=== PATIENT | male | born 1995 | race Caucasian/White ===

== ENCOUNTER 2019-07-23 18:15 | Emergency (ER) | payer SELFPAY ==
[~2019-07-23] VITALS: Ht 167.6 cm; Wt 90.7 kg
[~2019-07-23 18:15] MED LIST: ACCUNEB 0.0.63 MG/3 INH; PREDNICOT20 MG PO; PROAIR HFA0.09 MG/AC IH; ZITHROMAX Z PA250 MG PO
[2019-07-23] MEDS ORDERED: AMOXICILLIN500 M2 PO (19:43)
[2019-07-23] MEDS ORDERED: IBUPROFEN600 MG PO (19:43)
== END 2019-07-23 20:02 | disposition home or self-care (01) ==
LOC: ED 18:15
DX: K02.9 Dental caries, unspecified (principal)

== ENCOUNTER → 2019-12-23 | Outpatient (CLI) | payer OTHER ==
[~2019-12-23] MED LIST changes: +AMOXICILLIN500 M2 PO; +IBUPROFEN600 MG PO
[2019-12-23 14:30] LABS: HEMATOCRIT 46.3 % (42.0-52.0); HEMOGLOBIN 15.7 g/dl (14.0-18.0); MEAN CORPUSCULAR HGB 30.2 pg (27.0-31.0); MEAN CORPUSCULAR HGB CONC 33.9 g/dl (33.0-37.0); MEAN PLATELET VOLUME 9.5 fl (9.6-12.3); RED BLOOD COUNT 5.2 10*6/uL (4.50-5.90); RED CELL DISTRI WIDTH 12.6 % (0-14.5); WHITE BLOOD COUNT 7.2 10*3/uL (4.8-10.8)
[2019-12-23 14:59] LABS: ALBUMIN 3.8 gm/dl (3.1-4.5); ALKALINE PHOSPHATASE 89 U/L (45-117); BUN 12 mg/dl (7-24); CHLORIDE 112 mmol/L (98-107); CHOLESTEROL 184 mg/dL (<200); CREATININE 0.88 mg/dL (0.70-1.30); HDL CHOLESTEROL 35 mg/dl (40-60); LDL CHOLESTEROL 75 mg/dL (9-159); SGOT/AST 41 IU/L (3-35); SGPT/ALT 78 U/L (12-78); SODIUM 143 mmol/L (136-145); TOTAL PROTEIN 7.1 gm/dL (6.4-8.2); TRIGLYCERIDES 368 mg/dl (<150); VLDL CHOLESTEROL 74 mg/dL (6-40)
== END | disposition home or self-care (01) ==
LOC: LAB 13:16
PROVIDERS: Nurse Practitioner Family
DX: I10 Essential (primary) hypertension (principal); E55.9 Vitamin D deficiency, unspecified; E78.00 Pure hypercholesterolemia, unspecified

== ENCOUNTER → 2020-02-06 | Outpatient (CLI) | payer OTHER | END | disposition home or self-care (01) | LOC: US 12:30 | DX: N43.3 Hydrocele, unspecified (principal) ==

== ENCOUNTER → 2020-09-14 | Outpatient (CLI) | payer OTHER ==
[2020-09-14 16:40] LABS: ALBUMIN 4.2 gm/dl (3.1-4.5); ALKALINE PHOSPHATASE 127 U/L (45-117); BUN 9 mg/dl (7-24); CHLORIDE 112 mmol/L (98-107); CREATININE 0.94 mg/dL (0.70-1.30); SGOT/AST 60 IU/L (3-35); SGPT/ALT 137 U/L (12-78); SODIUM 142 mmol/L (136-145); TOTAL PROTEIN 8.4 gm/dL (6.4-8.2)
== END | disposition home or self-care (01) ==
LOC: LAB 14:59
PROVIDERS: ATTEND Family Medicine
DX: K21.9 Gastro-esophageal reflux disease without esophagitis (principal); R94.5 Abnormal results of liver function studies

== ENCOUNTER → 2020-10-12 | Outpatient (CLI) | payer OTHER | END | disposition home or self-care (01) | LOC: COVID19 13:28 | PROVIDERS: ATTEND Family Medicine | DX: Z20.828 Contact with and (suspected) exposure to other viral communicable diseases (principal) ==

== ENCOUNTER 2021-03-28 20:58 | Emergency (ER) | payer OTHER ==
[~2021-03-28] VITALS: Ht 167.6 cm; Wt 99.8 kg
[2021-03-28] MEDS ORDERED: PREDNISONE20 M1 PO (23:23)
[2021-03-28] MEDS ORDERED: Ipratropium Brom3 ML INH (23:23)
== END 2021-03-28 23:42 | disposition home or self-care (01) ==
LOC: ED 20:58
DX: J45.901 Unspecified asthma with (acute) exacerbation (principal); R06.02 Shortness of breath; F17.200 Nicotine dependence, unspecified, uncomplicated

== ENCOUNTER → 2021-05-02 | Outpatient (CLI) | payer OTHER ==
[~2021-05-02] MED LIST changes: +Ipratropium Brom3 ML INH; +PREDNISONE20 M1 PO
[2021-05-02 13:04] LABS: HEMATOCRIT 44.2 % (42.0-52.0); MEAN CELL VOLUME 88.9 fl (80.0-94.0); MEAN CORPUSCULAR HGB 31.6 pg (27.0-31.0); MEAN CORPUSCULAR HGB CONC 35.5 g/dl (33.0-37.0); MEAN PLATELET VOLUME 9.5 fl (9.6-12.3); RED BLOOD COUNT 4.97 10*6/uL (4.50-5.90); RED CELL DISTRI WIDTH 12.6 % (0-14.5)
[2021-05-02 13:22] LABS: ALKALINE PHOSPHATASE 129 U/L (45-117); BUN 11 mg/dl (7-24); CHLORIDE 109 mmol/L (98-107); CREATININE 0.92 mg/dL (0.70-1.30); GAMMA GLUTAMYL TRANSPEPTIDASE 289 U/L (15-85); POTASSIUM 4.2 mmol/L (3.5-5.1); SGOT/AST 63 IU/L (3-35); SGPT/ALT 127 U/L (12-78); SODIUM 139 mmol/L (136-145); TOTAL PROTEIN 7.9 gm/dL (6.4-8.2)
[2021-05-03 05:08] LABS: HEP B CORE AB, IGM Negative (Negative); HEPATITIS B SURFACE AG Negative (Negative); HEPATITIS C VIRUS ANTIBODY <0.1 s/co (0.0-0.9)
== END | disposition home or self-care (01) ==
LOC: LAB 12:46
PROVIDERS: ATTEND Family Medicine
DX: K75.9 Inflammatory liver disease, unspecified (principal); F10.99 Alcohol use, unspecified with unspecified alcohol-induced disorder

== ENCOUNTER → 2021-05-17 | Outpatient (CLI) | payer OTHER | END | disposition home or self-care (01) | LOC: US 08:30 | PROVIDERS: ATTEND Family Medicine | DX: K76.0 Fatty (change of) liver, not elsewhere classified (principal) ==

== ENCOUNTER → 2021-11-08 | Outpatient (CLI) | payer OTHER | END | disposition home or self-care (01) | LOC: CT 10-28 15:00 | PROVIDERS: ATTEND Family Medicine | DX: L04.0 Acute lymphadenitis of face, head and neck (principal) ==

== ENCOUNTER → 2021-12-06 | Outpatient (CLI) | payer OTHER | END | disposition home or self-care (01) | LOC: CT 14:00 | PROVIDERS: ATTEND Family Medicine | DX: R07.9 Chest pain, unspecified (principal); R06.02 Shortness of breath; R06.00 Dyspnea, unspecified; Z86.16 Personal history of COVID-19; I88.9 Nonspecific lymphadenitis, unspecified ==

== ENCOUNTER 2022-06-05 13:25 | Inpatient (IN) | payer OTHER ==
[~2022-06-05] VITALS: Ht 170.1 cm; Wt 105.8 kg
[~2022-06-05 13:25] MED LIST changes: +CIPRO500 MG PO
[2022-06-05 13:30] VITALS: BP 147/102
[2022-06-05] MEDS ORDERED: Carafate1 GM PO (13:48)
[2022-06-05] MEDS ORDERED: OMEPRAZOLE40 MG PO (13:48)
[2022-06-05 14:28] LABS: BASO % 0.5 % (0.0-1.0); EOS # 0.1 10*3/uL (0.0-0.4); EOS % 1.7 % (1.0-4.0); HEMATOCRIT 48.7 % (42.0-52.0); LYMPH % 30.9 % (27.0-41.0); MEAN CELL VOLUME 88.5 fl (80.0-94.0); MEAN CORPUSCULAR HGB 31.3 pg (27.0-31.0); MEAN CORPUSCULAR HGB CONC 35.3 g/dl (33.0-37.0); MEAN PLATELET VOLUME 9.5 fl (9.6-12.3); MONO # 0.3 10*3/uL (0.1-1.0); NEUT # 3.9 10*3/uL (2.3-7.9); NEUT % 61.6 % (47.0-73.0); PLATELET COUNT AUTOMATED 265 10*3/uL (130-400); RED CELL DISTRI WIDTH 12.1 % (0-14.5); WHITE BLOOD COUNT 6.3 10*3/uL (4.8-10.8)
[2022-06-05 14:39] LABS: ACT PARTIAL THROMBO TIME 24.4 SECONDS (20.0-32.1); INTERNATIONAL NORM RATIO 0.9 (2.0-3.5)
[2022-06-05 14:42] LABS: ALKALINE PHOSPHATASE 100 U/L (45-117); BUN 11 mg/dl (7-24); CHLORIDE 108 mmol/L (98-107); CREATININE 1.04 mg/dL (0.70-1.30); ETHYL ALCOHOL < 3.0 mg/dl (<3); POTASSIUM 4.3 mmol/L (3.5-5.1); SGOT/AST 131 IU/L (3-35); SGPT/ALT 190 U/L (12-78); SODIUM 140 mmol/L (136-145); TOTAL PROTEIN 7.8 gm/dL (6.4-8.2)
[2022-06-05 14:47] VITALS: BP 134/86
[2022-06-05 16:00] VITALS: BP 145/85
[2022-06-05 16:09] LABS: BILIRUBIN Negative (Negative); BLOOD Negative (Negative); CLARITY Clear (Clear); COLOR Yellow (Yellow); GLUCOSE 3+ (Negative); KETONE Negative (Negative); LEUKO ESTERASE Negative (Negative); NITRITE Negative (Negative); SPECIFIC GRAVITY 1.025 (1.001-1.030)
[2022-06-05 16:19] LABS: URINE AMPHETAMINES < 1000 (1000ng/ml); URINE BARBITURATES < 200 (200ng/ml); URINE BENZODIAZEPINES < 200 (200ng/ml); URINE CANNABINOIDS (THC) > 50 (50ng/ml); URINE COCAINE < 300 (300ng/ml); URINE METHADONE < 300 (300ng/ml); URINE OPIATES < 300 (300ng/ml)
[2022-06-05 16:23] LABS: BACTERIA TRACE; MUCOUS 2+; WBC 0-2 wbc/hpf (0-5)
[2022-06-05 16:27] LABS: URINE PHENCYCLIDINE < 25 (25ng/ml)
[2022-06-05 20:00] VITALS: BP 148/89
[2022-06-06] VITALS: BP 140/78
[2022-06-06] MEDS ORDERED: VENT7GM INH (01:28)
[2022-06-06] MEDS ORDERED: VENTOLIN 02.5 MG/3 M INH (01:29)
[2022-06-06 06:27] LABS: BASO % 0.6 % (0.0-1.0); EOS # 0.2 10*3/uL (0.0-0.4); EOS % 3.7 % (1.0-4.0); HEMATOCRIT 44.2 % (42.0-52.0); LYMPH # 2.3 10*3/uL (1.3-4.4); LYMPH % 44.7 % (27.0-41.0); MEAN CELL VOLUME 89.1 fl (80.0-94.0); MEAN CORPUSCULAR HGB 31.9 pg (27.0-31.0); MEAN CORPUSCULAR HGB CONC 35.7 g/dl (33.0-37.0); MEAN PLATELET VOLUME 9.9 fl (9.6-12.3); MONO # 0.3 10*3/uL (0.1-1.0); MONO % 6.3 % (3.0-9.0); NEUT # 2.2 10*3/uL (2.3-7.9); NEUT % 43.9 % (47.0-73.0); PLATELET COUNT AUTOMATED 206 10*3/uL (130-400); RED BLOOD COUNT 4.96 10*6/uL (4.50-5.90); RED CELL DISTRI WIDTH 12.1 % (0-14.5); WHITE BLOOD COUNT 5.1 10*3/uL (4.8-10.8)
[2022-06-06 06:29] LABS: BUN 11 mg/dl (7-24); CHLORIDE 108 mmol/L (98-107); POTASSIUM 3.9 mmol/L (3.5-5.1); SODIUM 140 mmol/L (136-145)
[2022-06-06 06:38] LABS: ALKALINE PHOSPHATASE 88 U/L (45-117); CHOLESTEROL 213 mg/dL (<200); SGOT/AST 109 IU/L (3-35); SGPT/ALT 160 U/L (12-78); TOTAL PROTEIN 6.4 gm/dL (6.4-8.2); TRIGLYCERIDES 486 mg/dl (<150)
[2022-06-06 08:00] VITALS: BP 119/74
[2022-06-06 09:22] LABS: VITAMIN D, 25-HYDROXY 20.1 ng/mL (30-100)
[2022-06-06 12:00] VITALS: BP 116/72
[2022-06-06 16:00] VITALS: BP 124/74
[2022-06-06 20:00] VITALS: BP 106/88
[2022-06-07] VITALS: BP 108/54
[2022-06-07 06:15] LABS: BUN 10 mg/dl (7-24); CHLORIDE 107 mmol/L (98-107); CREATININE 0.83 mg/dL (0.70-1.30); POTASSIUM 3.9 mmol/L (3.5-5.1); SGOT/AST 75 IU/L (3-35); SGPT/ALT 149 U/L (12-78); SODIUM 140 mmol/L (136-145); TOTAL PROTEIN 6.7 gm/dL (6.4-8.2)
[2022-06-07 06:17] LABS: ALKALINE PHOSPHATASE 78 U/L (45-117)
[2022-06-07 08:00] VITALS: BP 118/74
[2022-06-07 12:00] VITALS: BP 124/82
[2022-06-07 16:00] VITALS: BP 140/83
[2022-06-07 20:00] VITALS: BP 121/41; BP 121/61
[2022-06-08] VITALS: BP 125/66
[2022-06-08 06:33] LABS: ALKALINE PHOSPHATASE 110 U/L (45-117); BUN 13 mg/dl (7-24); CHLORIDE 108 mmol/L (98-107); CREATININE 0.91 mg/dL (0.70-1.30); SGOT/AST 108 IU/L (3-35); SGPT/ALT 169 U/L (12-78); SODIUM 140 mmol/L (136-145); TOTAL PROTEIN 6.8 gm/dL (6.4-8.2)
[2022-06-08 08:00] VITALS: BP 128/72
[2022-06-08] MEDS ORDERED: GLUCOPHAGE500 MG PO (11:08)
[2022-06-08] MEDS ORDERED: VITAMIN D350 MC2 PO (11:08)
[2022-06-08] MEDS ORDERED: ATARAX,VISTARIL50 MG PO (11:08)
== END 2022-06-08 12:14 | disposition home or self-care (01) | DRG 775 ==
LOC: ED 13:25 → EDHOLD 14:18 → 5E 14:18
PROVIDERS: Emergency Medicine; Internal Medicine; Student in an Organized Health Care Education/Training Program; ADMIT Student in an Organized Health Care Education/Training Program; ATTEND Student in an Organized Health Care Education/Training Program
DX: F10.239 Alcohol dependence with withdrawal, unspecified (principal); K21.9 Gastro-esophageal reflux disease without esophagitis; E87.8 Other disorders of electrolyte and fluid balance, not elsewhere classified; J45.909 Unspecified asthma, uncomplicated; E66.9 Obesity, unspecified; R73.9 Hyperglycemia, unspecified; R74.01 Elevation of levels of liver transaminase levels; E78.2 Mixed hyperlipidemia; E55.9 Vitamin D deficiency, unspecified; Z82.49 Family history of ischemic heart disease and other diseases of the circulatory system; Z83.79 Family history of other diseases of the digestive system; Z68.36 Body mass index [BMI] 36.0-36.9, adult

== ENCOUNTER → 2022-06-24 | Outpatient (CLI) | payer OTHER ==
[~2022-06-24] MED LIST changes: +ATARAX,VISTARIL50 MG PO; +Carafate1 GM PO; +GLUCOPHAGE500 MG PO; +OMEPRAZOLE40 MG PO; +VENT7GM INH; +VENTOLIN 02.5 MG/3 M INH; +VITAMIN D350 MC2 PO
[2022-06-24 11:14] LABS: HEMATOCRIT 47.2 % (42.0-52.0); MEAN CELL VOLUME 90.1 fl (80.0-94.0); MEAN CORPUSCULAR HGB 31.1 pg (27.0-31.0); MEAN CORPUSCULAR HGB CONC 34.5 g/dl (33.0-37.0); MEAN PLATELET VOLUME 9.5 fl (9.6-12.3); RED BLOOD COUNT 5.24 10*6/uL (4.50-5.90); RED CELL DISTRI WIDTH 11.9 % (0-14.5); WHITE BLOOD COUNT 8.7 10*3/uL (4.8-10.8)
[2022-06-24 11:48] LABS: BUN 12 mg/dl (7-24); CHLORIDE 110 mmol/L (98-107); CREATININE 0.85 mg/dL (0.70-1.30); GAMMA GLUTAMYL TRANSPEPTIDASE 151 U/L (15-85); POTASSIUM 4.4 mmol/L (3.5-5.1); SGOT/AST 41 IU/L (3-35); SGPT/ALT 97 U/L (12-78); SODIUM 142 mmol/L (136-145)
[2022-06-24 11:52] LABS: ALKALINE PHOSPHATASE 114 U/L (45-117); CHOLESTEROL 213 mg/dL (<200); LDL CHOLESTEROL 151 mg/dL (9-159); TOTAL PROTEIN 7.9 gm/dL (6.4-8.2); TRIGLYCERIDES 147 mg/dl (<150)
== END | disposition home or self-care (01) ==
LOC: LAB 10:46
PROVIDERS: ATTEND Family Medicine
DX: F41.1 Generalized anxiety disorder (principal); E74.00 Glycogen storage disease, unspecified; F10.20 Alcohol dependence, uncomplicated; R51.9 Headache, unspecified

== ENCOUNTER → 2022-08-26 | Outpatient (CLI) | payer OTHER ==
[2022-08-26 16:40] LABS: HEMATOCRIT 41.4 % (42.0-52.0); MEAN CELL VOLUME 88.7 fl (80.0-94.0); MEAN CORPUSCULAR HGB 30.4 pg (27.0-31.0); MEAN CORPUSCULAR HGB CONC 34.3 g/dl (33.0-37.0); MEAN PLATELET VOLUME 9.4 fl (9.6-12.3); RED BLOOD COUNT 4.67 10*6/uL (4.50-5.90); RED CELL DISTRI WIDTH 12.1 % (0-14.5); WHITE BLOOD COUNT 6.5 10*3/uL (4.8-10.8)
[2022-08-26 16:56] LABS: ALKALINE PHOSPHATASE 91 U/L (45-117); BUN 17 mg/dl (7-24); CHLORIDE 111 mmol/L (98-107); CREATININE 0.93 mg/dL (0.70-1.30); POTASSIUM 4.2 mmol/L (3.5-5.1); SGOT/AST 43 IU/L (3-35); SGPT/ALT 92 U/L (12-78); SODIUM 141 mmol/L (136-145); TOTAL PROTEIN 7.7 gm/dL (6.4-8.2)
== END | disposition home or self-care (01) ==
LOC: LAB 16:29
PROVIDERS: ATTEND Family Medicine
DX: T14.8XXA Other injury of unspecified body region, initial encounter (principal); R21 Rash and other nonspecific skin eruption; W57.XXXA Bitten or stung by nonvenomous insect and other nonvenomous arthropods, initial encounter; Y93.89 Activity, other specified; Y92.89 Other specified places as the place of occurrence of the external cause; Y99.8 Other external cause status

== ENCOUNTER → 2022-11-29 | Outpatient (CLI) | payer MEDICAID ==
[2022-11-29 09:27] LABS: HEMATOCRIT 44.5 % (42.0-52.0); MEAN CELL VOLUME 85.6 fl (80.0-94.0); MEAN CORPUSCULAR HGB 29.2 pg (27.0-31.0); MEAN CORPUSCULAR HGB CONC 34.2 g/dl (33.0-37.0); MEAN PLATELET VOLUME 9.6 fl (9.6-12.3); RED BLOOD COUNT 5.2 10*6/uL (4.50-5.90); RED CELL DISTRI WIDTH 12.8 % (0-14.5); WHITE BLOOD COUNT 6.6 10*3/uL (4.8-10.8)
[2022-11-29 09:42] LABS: ALKALINE PHOSPHATASE 95 U/L (46-116); BUN 16 mg/dl (9-23); CHLORIDE 105 mmol/L (98-107); CHOLESTEROL 165 mg/dL (<200); CPK 828 U/L (34-171); LDL CHOLESTEROL 97 mg/dL (9-159); POTASSIUM 4.3 mmol/L (3.4-5.1); SGPT/ALT 53 U/L (10-49); TOTAL PROTEIN 7.3 gm/dL (6.0-8.0); TRIGLYCERIDES 189 mg/dl (<150)
== END | disposition home or self-care (01) ==
LOC: LAB 01:25
PROVIDERS: ATTEND Family Medicine
DX: E11.9 Type 2 diabetes mellitus without complications (principal); E78.00 Pure hypercholesterolemia, unspecified; I10 Essential (primary) hypertension

== ENCOUNTER → 2022-12-27 | Outpatient (CLI) | payer MEDICAID ==
[2022-12-27 11:25] LABS: ALKALINE PHOSPHATASE 105 U/L (46-116); BUN 16 mg/dl (9-23); CHLORIDE 106 mmol/L (98-107); CPK 795 U/L (34-171); POTASSIUM 4.4 mmol/L (3.4-5.1); SGPT/ALT 63 U/L (10-49); TOTAL PROTEIN 7.4 gm/dL (6.0-8.0)
== END | disposition home or self-care (01) ==
LOC: LAB 10:55
PROVIDERS: ATTEND Family Medicine
DX: R94.4 Abnormal results of kidney function studies (principal)

== ENCOUNTER 2023-07-11 13:01 | Emergency (ER) | payer MEDICAID ==
[~2023-07-11] VITALS: Ht 170.1 cm; Wt 106.6 kg
[2023-07-11] MEDS ORDERED: METFORMIN HYDR500 MG PO (13:11)
[2023-07-11] MEDS ORDERED: LOSARTAN POTASS25 M1 PO (13:11)
[2023-07-11] MEDS ORDERED: GLYNASE3 MG PO (13:11)
[2023-07-11 13:58] LABS: BASO % 0.2 % (0.0-1.0); EOS # 0.2 10*3/uL (0.0-0.4); EOS % 1.8 % (1.0-4.0); HEMATOCRIT 41.9 % (42.0-52.0); LYMPH # 1.6 10*3/uL (1.3-4.4); LYMPH % 14.5 % (27.0-41.0); MEAN CELL VOLUME 85.7 fl (80.0-94.0); MEAN CORPUSCULAR HGB 29.2 pg (27.0-31.0); MEAN CORPUSCULAR HGB CONC 34.1 g/dl (33.0-37.0); MEAN PLATELET VOLUME 9.7 fl (9.6-12.3); MONO # 0.6 10*3/uL (0.1-1.0); MONO % 5.4 % (3.0-9.0); NEUT # 8.4 10*3/uL (2.3-7.9); NEUT % 77.8 % (47.0-73.0); PLATELET COUNT AUTOMATED 277 10*3/uL (130-400); RED BLOOD COUNT 4.89 10*6/uL (4.50-5.90); RED CELL DISTRI WIDTH 12.7 % (0-14.5); WHITE BLOOD COUNT 10.8 10*3/uL (4.8-10.8)
[2023-07-11 14:19] LABS: ALKALINE PHOSPHATASE 105 U/L (46-116); BUN 11 mg/dl (9-23); CHLORIDE 108 mmol/L (98-107); POTASSIUM 3.5 mmol/L (3.4-5.1); SGPT/ALT 49 U/L (10-49)
[2023-07-11] MEDS ORDERED: PREDNISONE20 M1 PO (16:14)
[2023-07-11] MEDS ORDERED: ZITHROMAX250 MG PO (16:14)
== END 2023-07-11 16:17 | disposition home or self-care (01) ==
LOC: ED 13:01
PROVIDERS: Nurse Practitioner
DX: J45.901 Unspecified asthma with (acute) exacerbation (principal); J18.9 Pneumonia, unspecified organism; Z20.822 Contact with and (suspected) exposure to COVID-19

== ENCOUNTER → 2023-08-13 | Outpatient (CLI) | payer MEDICAID ==
[~2023-08-13] MED LIST changes: +GLYNASE3 MG PO; +LOSARTAN POTASS25 M1 PO; +METFORMIN HYDR500 MG PO; +ZITHROMAX250 MG PO
[2023-08-13 15:20] LABS: HEMATOCRIT 44.6 % (42.0-52.0); MEAN CELL VOLUME 85.4 fl (80.0-94.0); MEAN CORPUSCULAR HGB 29.3 pg (27.0-31.0); MEAN CORPUSCULAR HGB CONC 34.3 g/dl (33.0-37.0); MEAN PLATELET VOLUME 9.4 fl (9.6-12.3); RED BLOOD COUNT 5.22 10*6/uL (4.50-5.90); RED CELL DISTRI WIDTH 12.8 % (0-14.5); WHITE BLOOD COUNT 6.8 10*3/uL (4.8-10.8)
[2023-08-13 15:30] LABS: ALKALINE PHOSPHATASE 109 U/L (46-116); BUN 8 mg/dl (9-23); CHLORIDE 109 mmol/L (98-107); CPK 431 U/L (34-171); POTASSIUM 3.9 mmol/L (3.4-5.1); SGPT/ALT 48 U/L (10-49)
== END | disposition home or self-care (01) ==
LOC: LAB 14:48
PROVIDERS: ATTEND Family Medicine
DX: F41.1 Generalized anxiety disorder (principal); E74.00 Glycogen storage disease, unspecified; M54.50 Low back pain, unspecified; R74.01 Elevation of levels of liver transaminase levels; G62.9 Polyneuropathy, unspecified

== ENCOUNTER → 2023-09-05 | Outpatient (CLI) | payer MEDICAID | END | disposition home or self-care (01) | LOC: CT 10:00 | PROVIDERS: ATTEND Family Medicine | DX: R10.9 Unspecified abdominal pain (principal) ==

== ENCOUNTER → 2023-09-20 | Outpatient (CLI) | payer MEDICAID | END | disposition home or self-care (01) | LOC: LAB 03:00 | PROVIDERS: ATTEND Family Medicine | DX: M54.50 Low back pain, unspecified (principal); R10.9 Unspecified abdominal pain ==

== ENCOUNTER 2023-09-25 23:19 | Emergency (ER) | payer MEDICAID ==
[~2023-09-25] VITALS: Ht 165.1 cm; Wt 97.5 kg
[2023-09-25] MEDS ORDERED: GABAPENTIN100 M2 PO (23:29)
[2023-09-26 00:02] LABS: BASO # 0.1 10*3/uL (0.0-0.1); BASO % 0.6 % (0.0-1.0); EOS # 0.2 10*3/uL (0.0-0.4); EOS % 1.9 % (1.0-4.0); HEMATOCRIT 44.9 % (42.0-52.0); LYMPH # 3.4 10*3/uL (1.3-4.4); LYMPH % 32.9 % (27.0-41.0); MEAN CELL VOLUME 86.3 fl (80.0-94.0); MEAN CORPUSCULAR HGB 29.4 pg (27.0-31.0); MEAN CORPUSCULAR HGB CONC 34.1 g/dl (33.0-37.0); MEAN PLATELET VOLUME 8.9 fl (9.6-12.3); MONO # 0.7 10*3/uL (0.1-1.0); NEUT # 5.9 10*3/uL (2.3-7.9); NEUT % 57.3 % (47.0-73.0); PLATELET COUNT AUTOMATED 425 10*3/uL (130-400); WHITE BLOOD COUNT 10.3 10*3/uL (4.8-10.8)
[2023-09-26 00:16] LABS: ACT PARTIAL THROMBO TIME 29.8 SECONDS (20.0-32.1)
[2023-09-26 00:24] LABS: ALKALINE PHOSPHATASE 71 U/L (46-116); BUN 10 mg/dl (9-23); CHLORIDE 106 mmol/L (98-107); LIPASE 56 U/L (12-53); POTASSIUM 3.4 mmol/L (3.4-5.1); SGPT/ALT 54 U/L (5-49); TOTAL PROTEIN 7.5 gm/dL (6.0-8.0)
[2023-09-26 00:25] LABS: ETHYL ALCOHOL < 3.0 mg/dl (<3)
[2023-09-26 06:02] LABS: URINE AMPHETAMINES Positive (1000ng/ml); URINE BARBITURATES Negative (200ng/ml); URINE BENZODIAZEPINES Negative (200ng/ml); URINE CANNABINOIDS (THC) Negative (50ng/ml); URINE COCAINE Negative (300ng/ml); URINE METHADONE Negative (300ng/ml); URINE OPIATES Negative (300ng/ml); URINE PHENCYCLIDINE Negative (25ng/ml)
[2023-09-26 06:06] LABS: BILIRUBIN Negative (Negative); BLOOD Negative (Negative); CLARITY Clear (Clear); COLOR Yellow (Yellow); GLUCOSE Negative (Negative); KETONE Negative (Negative); LEUKO ESTERASE Negative (Negative); NITRITE Negative (Negative); SPECIFIC GRAVITY >= 1.030 (1.001-1.030); UROBILINOGEN 0.2 E.U./dl (0.0-1.0)
[2023-09-26 06:39] LABS: CALCIUM OXALATE CRYSTALS Trace
[2023-09-26 06:41] LABS: BACTERIA 1+
== END 2023-09-26 06:48 | disposition home or self-care (01) ==
LOC: ED 23:19
PROVIDERS: Internal Medicine
DX: F15.10 Other stimulant abuse, uncomplicated (principal); R10.9 Unspecified abdominal pain; R30.0 Dysuria; R11.2 Nausea with vomiting, unspecified

== ENCOUNTER → 2024-08-25 | Outpatient (CLI) | payer BC, MEDICAID ==
[~2024-08-25] MED LIST changes: +GABAPENTIN100 M2 PO
== END | disposition home or self-care (01) ==
LOC: RAD 12:56
PROVIDERS: ATTEND Family Medicine
DX: R06.02 Shortness of breath (principal); J90 Pleural effusion, not elsewhere classified

== ENCOUNTER 2024-10-30 00:23 | Emergency (ER) | payer BC ==
[2024-10-30] MEDS ORDERED: QUETIAPINE FUM100 M3 PO (01:15)
[2024-10-30 01:21] LABS: BASO # 0.1 10*3/uL (0.0-0.1); BASO % 0.6 % (0.0-1.0); EOS # 0.5 10*3/uL (0.0-0.4); EOS % 4.9 % (1.0-4.0); HEMATOCRIT 44.8 % (42.0-52.0); MEAN CELL VOLUME 86.8 fl (80.0-94.0); MEAN CORPUSCULAR HGB CONC 34.6 g/dl (33.0-37.0); MEAN PLATELET VOLUME 9.5 fl (9.6-12.3); MONO # 0.6 10*3/uL (0.1-1.0); MONO % 5.7 % (3.0-9.0); NEUT % 59.1 % (47.0-73.0); PLATELET COUNT AUTOMATED 327 10*3/uL (130-400); RED BLOOD COUNT 5.16 10*6/uL (4.50-5.90); RED CELL DISTRI WIDTH 12.8 % (0-14.5); WHITE BLOOD COUNT 10.1 10*3/uL (4.8-10.8)
[2024-10-30 01:41] LABS: BUN 14 mg/dl (9-23); CHLORIDE 106 mmol/L (98-107); POTASSIUM 3.9 mmol/L (3.4-5.1)
[2024-10-30] MEDS ORDERED: SODIUM CHLORIDE 0.9% 500 ML IV ONE ×2 (01:50→04:25)
[2024-10-30] MEDS ORDERED: LORazepam 1 MG TAB PO ONE (03:25)
[2024-10-30 05:03] LABS: URINE AMPHETAMINES Negative (1000ng/ml); URINE BARBITURATES Negative (200ng/ml); URINE BENZODIAZEPINES Negative (200ng/ml); URINE CANNABINOIDS (THC) Negative (50ng/ml); URINE COCAINE Negative (300ng/ml); URINE METHADONE Negative (300ng/ml); URINE OPIATES Negative (300ng/ml); URINE PHENCYCLIDINE Negative (25ng/ml)
== END 2024-10-30 06:30 | disposition home or self-care (01) ==
LOC: ED 00:23
PROVIDERS: Internal Medicine
DX: F41.9 Anxiety disorder, unspecified (principal); R00.0 Tachycardia, unspecified; J45.909 Unspecified asthma, uncomplicated; Z87.891 Personal history of nicotine dependence; Z79.899 Other long term (current) drug therapy

== ENCOUNTER 2024-11-20 09:46 | Emergency (ER) | payer BC ==
[~2024-11-20 09:46] MED LIST changes: +QUETIAPINE FUM100 M3 PO
== END 2024-11-20 17:37 | disposition left against medical advice (07) ==
LOC: ED 09:46
DX: R06.02 Shortness of breath (principal); Z53.21 Procedure and treatment not carried out due to patient leaving prior to being seen by health care provider

== ENCOUNTER 2024-11-20 10:25 | Emergency (ER) | payer BC ==
[~2024-11-20] VITALS: Wt 108.0 kg
[2024-11-20] MEDS ORDERED: methylPREDNISolone sod succ 125 MG VIAL IV ONE (12:25)
[2024-11-20] MEDS ORDERED: Albuterol Sulf/Ipratropium 3 ML VIAL NEB ONE (12:25)
[2024-11-20] MEDS ORDERED: ACETAMINOPHEN 325 MG TAB PO ONE (12:30)
[2024-11-20] MEDS ORDERED: SODIUM CHLORIDE 0.9% 1,000 ML IV ONE ×2 (12:30)
[2024-11-20 12:52] LABS: BASO % 0.2 % (0.0-1.0); EOS # 0.3 10*3/uL (0.0-0.4); EOS % 5.2 % (1.0-4.0); HEMATOCRIT 44.4 % (42.0-52.0); MEAN CELL VOLUME 87.9 fl (80.0-94.0); MEAN CORPUSCULAR HGB 29.7 pg (27.0-31.0); MEAN CORPUSCULAR HGB CONC 33.8 g/dl (33.0-37.0); MEAN PLATELET VOLUME 9.5 fl (9.6-12.3); MONO # 0.4 10*3/uL (0.1-1.0); MONO % 8.2 % (3.0-9.0); NEUT # 3.8 10*3/uL (2.3-7.9); NEUT % 74.3 % (47.0-73.0); PLATELET COUNT AUTOMATED 242 10*3/uL (130-400); RED BLOOD COUNT 5.05 10*6/uL (4.50-5.90); RED CELL DISTRI WIDTH 12.6 % (0-14.5); WHITE BLOOD COUNT 5.2 10*3/uL (4.8-10.8)
[2024-11-20 13:13] LABS: ALKALINE PHOSPHATASE 102 U/L (46-116); BUN 10 mg/dl (9-23); CHLORIDE 105 mmol/L (98-107); POTASSIUM 3.6 mmol/L (3.4-5.1); SGPT/ALT 104 U/L (5-49); TOTAL PROTEIN 7.1 gm/dL (6.0-8.0)
== END 2024-11-20 14:41 | disposition home or self-care (01) ==
LOC: ED 10:25
PROVIDERS: Nurse Practitioner
DX: J10.1 Influenza due to other identified influenza virus with other respiratory manifestations (principal); Z20.822 Contact with and (suspected) exposure to COVID-19; R11.2 Nausea with vomiting, unspecified; J45.909 Unspecified asthma, uncomplicated; Z98.890 Other specified postprocedural states; Z87.891 Personal history of nicotine dependence

== ENCOUNTER 2025-01-03 14:46 | Emergency (ER) | payer MEDICAID ==
[~2025-01-03] VITALS: Ht 170.1 cm; Wt 108.0 kg
[2025-01-03 15:56] LABS: BASO % 0.4 % (0.0-1.0); EOS % 0.4 % (1.0-4.0); HEMATOCRIT 44.1 % (42.0-52.0); MEAN CORPUSCULAR HGB 29.5 pg (27.0-31.0); MEAN CORPUSCULAR HGB CONC 34.7 g/dl (33.0-37.0); MEAN PLATELET VOLUME 9.3 fl (9.6-12.3); MONO # 0.6 10*3/uL (0.1-1.0); MONO % 5.3 % (3.0-9.0); NEUT # 8.2 10*3/uL (2.3-7.9); NEUT % 76.4 % (47.0-73.0); PLATELET COUNT AUTOMATED 323 10*3/uL (130-400); RED BLOOD COUNT 5.19 10*6/uL (4.50-5.90); RED CELL DISTRI WIDTH 12.3 % (0-14.5); WHITE BLOOD COUNT 10.7 10*3/uL (4.8-10.8)
[2025-01-03 16:18] LABS: BUN 12 mg/dl (9-23); CHLORIDE 105 mmol/L (98-107); POTASSIUM 3.4 mmol/L (3.4-5.1)
== END 2025-01-03 18:00 | disposition home or self-care (01) ==
LOC: ED 14:46
PROVIDERS: Nurse Practitioner Family
DX: R07.1 Chest pain on breathing (principal); R00.2 Palpitations; F41.9 Anxiety disorder, unspecified; J45.909 Unspecified asthma, uncomplicated; E11.65 Type 2 diabetes mellitus with hyperglycemia; E78.5 Hyperlipidemia, unspecified; K21.9 Gastro-esophageal reflux disease without esophagitis; F10.90 Alcohol use, unspecified, uncomplicated; Z98.890 Other specified postprocedural states